=== PATIENT | male | born 1980 | race American Indian/Alaskan Native ===

== ENCOUNTER 2025-05-04 18:15 | Emergency (ER) | payer OTHER, MEDICAID, SELFPAY ==
[2025-05-04 18:17] VITALS: BP 108/62; PULSE 121; PULSE 122; RESP 18; RESP 19; TEMP 37.2; O2SAT 94; O2SAT 98
[2025-05-04 18:22] VITALS: BMI 35.7
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
--- NOTE | 2025-05-04 18:50 | PC.NURSE ---
PT REFUSED WOUND CARE AT AT THIS TIME
--- NOTE | 2025-05-04 18:52 | PC.NURSE ---
PT WALKED OUT, REFUSED TO SIGN AMA FORM STATING I JUST WANT TO GET OUT OF HERE, I DON'T WANT THE SCAN OR MEDICATION, I KNOW I STILL HAVE TO COME BACK TO GET THESE THINGS IN MY HEAD TAKEN OUT WALKED OUT OF THE ER AT THIS TIME. PROVIDER AWARE
== END 2025-05-04 18:55 | disposition left against medical advice (07) ==
PROVIDERS: Emergency Provider Emergency Medicine
DX: S01.01XA Laceration without foreign body of scalp, initial encounter (principal); W01.0XXA Fall on same level from slipping, tripping and stumbling without subsequent striking against object, initial encounter
CPT/HCPCS: 99281